=== PATIENT | female | born 1970 | race Caucasian/White ===

== ENCOUNTER 2016-08-14 18:14 | Observation (INO) | payer BC ==
[~2016-08-14] VITALS: Ht 172.7 cm; Wt 76.7 kg
[~2016-08-14 18:14] MED LIST: APRI
[2016-08-14] MEDS ORDERED: SODIUM CHLORIDE 0.9% 1000ML 1,000 ML IV STA ×2 (19:57)
[2016-08-14] MEDS ORDERED: KETOROLAC TROMETHAMINE 30 MG/ML VIAL IV STA (19:57)
[2016-08-14] MEDS ORDERED: ONDANSETRON INJ 2 MG/ML 2 ML VIAL IV STA (19:57)
[2016-08-14] MEDS ORDERED: MoRPHine SULFATE 10 MG/ML CARP/VIAL IV PRN (20:00)
--- NOTE | 2016-08-14 20:12 | EMERGENCY ROOM VISIT NOTE ---
History Report prepared by Cecy: Aaron Resendez Under the Supervision of: Dr. Rip Ferrera M.D. First contact with patient: 19:53 Chief Complaint: ABDOMINAL PAIN Stated Complaint: STOMACH PAIN Nursing Triage Summary: Pt c/o stomach pain and diarrhea this morning and now vomiting and stomach pain (mid abdominal) History of Present Illness The patient is a 46 year old female who presents to the Emergency Room with complaints of constant mid right abdominal pain beginning several hours prior to arrival. She describes the pain as dull and currently rates her discomfort as a 9-10/10 in severity. The patient associates nausea, decreased appetite, and three episodes of diarrhea with today's symptoms. She states she had two episodes of diarrhea this morning and one episode in the afternoon. The patient notes she had a kale and sausage soup with chicken brother for lunch yesterday and today. She states she took two Gas-X, TUMs, and a Pepcid six hours ago without relief. The patient notes she has had her gallbladder removed but still has her appendix. She denies a fever, vomiting, blood in stool, burning with urination, pain radiation, and a chance of . 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 Review of Systems See HPI for pertinent positives & negatives. A total of 10 systems reviewed and were otherwise negative. Past Medical & Surgical Surgical Problems: (1) S/P section (2) S/P cholecystectomy Family History FHx: gallbladder disease Social History Smoking Status: Never Smoker Marital Status: Current/Historical Medications Scheduled Control Pills ( Control Pills), 1 TAB PO QAM Allergies Coded Allergies: No Known Allergies (Unverified , 08/14/16) Physical Exam Vital Signs Date Time Temp Pulse Resp B/P Pulse Ox O2 Delivery O2 Flow Rate FiO2 08/14/16 20:29 66 18 102/57 97 Room Air 08/14/16 18:23 37.0 83 18 137/74 100 Room Air Physical Exam GENERAL: Patient is in no acute distress. HEENT: No acute trauma, normocephalic atraumatic, mucous membranes moist, no nasal congestion, no scleral icterus. NECK: No stridor, no adenopathy, no meningismus, trachea is midline. LUNGS: Clear to auscultation bilaterally, no wheeze, no rhonchi, breath sounds equal. HEART: Without murmurs gallops or rubs, regular rate and rhythm. ABDOMEN: Mildly diffusely tender but mostly tender in the right lower quadrant. Soft, bowel sounds positive, no hernias, no peritonitis. EXTREMITIES: No cyanosis or edema, full range of motion of all the joints without pain or difficulty, no signs for acute trauma. NEUROLOGIC: Oriented x 3, no acute motor or sensory deficits, no focal weakness. SKIN: No rash, no jaundice, no diaphoresis. Medical Decision & Procedures ER Provider Diagnostic Interpretation: CT results as stated below per my review and radiologist interpretation: CT OF THE ABDOMEN AND PELVIS WITH CONTRAST CLINICAL HISTORY: Abdominal pain. Possible appendicitis. COMPARISON STUDY: None. TECHNIQUE: Following IV administration of 120 mL of Optiray-320, axial images of the abdomen and pelvis were obtained from the lung bases to the proximal femurs. Images were reviewed in the axial, sagittal, and coronal planes. IV contrast was administered without complication. CT DOSE: 363.21 mGy.cm FINDINGS: Lung bases are clear. The liver, spleen, adrenal glands, kidneys and pancreas are normal. There is mild biliary ductal dilatation which may be related to prior cholecystectomy. There is no pneumatosis, free air or portal venous gas. There is a small amount of fluid within the pelvis. There is no evidence for a bowel obstruction. The appendix is mildly dilated, measuring 9 mm in caliber. Two appendicoliths are present. The appendix is largely fluid filled. There is no significant periappendiceal infiltration. There is no free air or abscess. Skeletal structures are unremarkable. IMPRESSION: 1. Findings suggestive of acute appendicitis. No free air or abscess. Mildly dilated, fluid-filled appendix which contains several appendicoliths. 2. Small amount of free fluid within the pelvis. Electronically signed by: Juan Damon M.D. 08/14/2016 9:37 PM Laboratory Results 08/14/16 20:15 Red Blood Count 4.78, Mean Corpuscular Volume 89.1, Mean Corpuscular Hemoglobin 31.4, Mean Corpuscular Hemoglobin Concent 35.2, Mean Platelet Volume 10.1, Neutrophils (%) (Auto) 88.9, Lymphocytes (%) (Auto) 7.5, Monocytes (%) (Auto) 3.2, Eosinophils (%) (Auto) 0.1, Basophils (%) (Auto) 0.1, Neutrophils # (Auto) 14.92, Lymphocytes # (Auto) 1.26, Monocytes # (Auto) 0.53, Eosinophils # (Auto) 0.01, Basophils # (Auto) 0.01 08/14/16 20:15 Test 08/14/16 20:04 08/14/16 20:15 Urine Color YELLOW Urine Appearance CLEAR (CLEAR) Urine pH 5.0 (4.5-7.5) Urine Specific [place] 1.015 (1.000-1.030) Urine Protein NEG (NEG) Urine Glucose (UA) NEG (NEG) Urine Ketones 2+ (NEG) Urine Occult Blood NEG (NEG) Urine Nitrite NEG (NEG) Urine Bilirubin NEG (NEG) Urine Urobilinogen NEG (NEG) Urine Leukocyte Esterase NEG (NEG) White Blood Count 16.76 K/uL (4.8-10.8) Red Blood Count 4.78 M/uL (4.2-5.4) Hemoglobin 15.0 g/dL (12.0-16.0) Hematocrit 42.6 % (37-47) Mean Corpuscular Volume 89.1 fL (80-100) Mean Corpuscular Hemoglobin 31.4 pg (25-34) Mean Corpuscular Hemoglobin Concent 35.2 g/dl (32-36) Platelet Count 207 K/uL (130-400) Mean Platelet Volume 10.1 fL (7.4-10.4) Neutrophils (%) (Auto) 88.9 % Lymphocytes (%) (Auto) 7.5 % Monocytes (%) (Auto) 3.2 % Eosinophils (%) (Auto) 0.1 % Basophils (%) (Auto) 0.1 % Neutrophils # (Auto) 14.92 K/uL (1.4-6.5) Lymphocytes # (Auto) 1.26 K/uL (1.2-3.4) Monocytes # (Auto) 0.53 K/uL (0.11-0.59) Eosinophils # (Auto) 0.01 K/uL (0-0.5) Basophils # (Auto) 0.01 K/uL (0-0.2) RDW Standard Deviation 42.4 fL (36.4-46.3) RDW Coefficient of Variation 13.0 % (11.5-14.5) Immature Granulocyte % (Auto) 0.2 % Immature Granulocyte # (Auto) 0.03 K/uL (0.00-0.02) Anion Gap 12.0 mmol/L (3-11) Est Creatinine Clear Calc Drug Dose 88.9 ml/min Estimated GFR () 92.6 Estimated GFR (Non- 79.9 BUN/Creatinine Ratio 14.1 (10-20) Calcium Level 9.1 mg/dl (8.5-10.1) Total Bilirubin 0.7 mg/dl (0.2-1) Aspartate Amino Transf (AST/SGOT) 16 U/L (15-37) Alanine Aminotransferase (ALT/SGPT) 21 U/L (12-78) Alkaline Phosphatase 51 U/L (45-117) Total Protein 8.1 gm/dl (6.4-8.2) Albumin 4.0 gm/dl (3.4-5.0) Globulin 4.1 gm/dl (2.5-4.0) Albumin/Globulin Ratio 1.0 (0.9-2) Lipase 117 U/L (73-393) Human Chorionic Gonadotropin, Qual NEG (NEG) Chemistry Specimen Hemolysis Laboratory results reviewed by me. Medications Administered Medications (Trade) Dose Ordered Sig/Juliocesar Route Start Time Stop Time Status Last Admin Dose Admin Ondansetron HCl 4 mg 4 mg NOW STAT IV 08/14/16 19:57 08/14/16 20:01 DC 08/14/16 20:16 4 MG Sodium Chloride 1,000 ml @ 200 mls/hr Q5H STAT IV 08/14/16 19:57 08/15/16 00:56 08/14/16 20:15 200 MLS/HR Sodium Chloride (Nss 1000ml) 1,000 ml @ 999 mls/hr Q1H1M STAT IV 08/14/16 19:57 08/14/16 20:57 DC 08/14/16 20:15 999 MLS/HR Morphine Sulfate (MoRPHine SULFATE INJ) 6 mg Q30M PRN IV 08/14/16 20:00 08/28/16 19:59 08/14/16 20:16 6 MG Ketorolac Tromethamine (Toradol Inj) 30 mg NOW STAT IV 08/14/16 19:57 08/14/16 20:01 DC 08/14/16 20:16 30 MG ED Course 1953: The patient was evaluated in room A12B. A complete history and physical exam was performed. 1956: Ordered Toradol Inj 30 mg IV, Sodium Chloride 1,000 ml @ 999 mls/hr IV, Sodium Chloride 1,000 ml @ 200 mls/hr IV, Zofran Inj 4 mg IV. 1999: Ordered Morphine Sulfate 6 mg IV. 2143: I spoke to SILVINA Buck (General Surgery) about the patient's case, and he will follow the patient for further evaluation. 2146: Reevaluated and updated the patient at this time. Medical Decision The differential diagnoses include but are not limited to: appendicitis, mesenteric adenitis, dehydration, electrolyte imbalance, pancreatitis, viral illness, UTI, ovarian cyst. There is a moderate leukocytosis at 16,000, this could be consistent with infection. No anemia. No significant electrolyte abnormality, kidney failure or hepatitis. There is no pancreatitis. Urinalysis shows some dehydration, no evidence for infection. testing is negative. On exam, there was no evidence for hernia. The patient was tender in the right lower quadrant and I was concerned for the possibility of appendicitis. An abdominal and pelvis CT was done, acute appendicitis without rupture was seen. The patient received IV saline, IV morphine, IV Toradol and IV Zofran. She feels improved. I talked to the patient, I talked with the skilled nursing case manager. The on-call surgeon has been consulted. The patient is likely going to require an appendectomy. Consults Time Called: 2143 Consulting Physician: SILVINA Buck (General Surgery) Returned Call: 2145 I spoke to SILVINA Buck (General Surgery) about the patient's case, and he will follow the patient for further evaluation. Impression Primary Impression: Acute appendicitis Scribe Attestation The scribe's documentation has been prepared under my direction and personally reviewed by me in its entirety. I confirm that the note above accurately reflects all work, treatment, procedures, and medical decision making performed by me. Departure Information Dispostion Being Evaluated By Surgeon (SILVINA Buck (General Surgery)) Referrals No Doctor, Assigned (PCP)
[2016-08-14] MEDS ORDERED: OPTIRAY 320 IV PRN (20:15)
[2016-08-14 20:19] LABS: URINE APPEARANCE CLEAR (CLEAR); URINE BILIRUBIN NEG (NEG); URINE COLOR YELLOW; URINE NITRITE NEG (NEG); URINE SPECIFIC GRAVITY 1.015 (1.000-1.030); UROBILINOGEN NEG (NEG); ZZUR CULT IF INDIC CLEAN CATCH NO
[2016-08-14 20:23] LABS: MANUAL MICROSCOPIC REQUIRED? NO; REVIEW REQ? NO
[2016-08-14 20:36] LABS: BASO % 0.1 %; BASO ABS # 0.01 K/uL (0-0.2); COMPLETE YES; EOS % 0.1 %; HEMATOCRIT 42.6 % (37-47); IG% 0.2 %; LYMPH % 7.5 %; LYMPH ABS # 1.26 K/uL (1.2-3.4); MEAN CELL VOLUME 89.1 fL (80-100); MEAN CORPUSCULAR HEMOGLOBIN 31.4 pg (25-34); MEAN CORPUSCULAR HGB CONC 35.2 g/dl (32-36); MEAN PLATELET VOLUME 10.1 fL (7.4-10.4); MONO % 3.2 %; NEUT % 88.9 %; PLATELET COUNT 207 K/uL (130-400); RED BLOOD COUNT 4.78 M/uL (4.2-5.4); WHITE BLOOD COUNT 16.76 K/uL (4.8-10.8)
[2016-08-14] MEDS ORDERED: BCPILLS PO (20:53)
[2016-08-14 21:01] LABS: PREG INTERNAL NEGATIVE QC NEG CLEAR BACKGROUND; PREG INTERNAL POSITIVE QC POS CONTROL LINE
[2016-08-14 21:12] LABS: BUN/CREATININE RATIO 14.1 (10-20); CALCIUM 9.1 mg/dl (8.5-10.1); CREATININE 0.88 mg/dl (0.60-1.20)
--- NOTE | 2016-08-14 21:38 | DIAGNOSTIC IMAGING REPORT ---
CT OF THE ABDOMEN AND PELVIS WITH CONTRAST CLINICAL HISTORY: Abdominal pain. Possible appendicitis. COMPARISON STUDY: None. TECHNIQUE: Following IV administration of 120 mL of Optiray-320, axial images of the abdomen and pelvis were obtained from the lung bases to the proximal femurs. Images were reviewed in the axial, sagittal, and coronal planes. IV contrast was administered without complication. CT DOSE: 363.21 mGy.cm FINDINGS: Lung bases are clear. The liver, spleen, adrenal glands, kidneys and pancreas are normal. There is mild biliary ductal dilatation which may be related to prior cholecystectomy. There is no pneumatosis, free air or portal venous gas. There is a small amount of fluid within the pelvis. There is no evidence for a bowel obstruction. The appendix is mildly dilated, measuring 9 mm in caliber. Two appendicoliths are present. The appendix is largely fluid filled. There is no significant periappendiceal infiltration. There is no free air or abscess. Skeletal structures are unremarkable. IMPRESSION: 1. Findings suggestive of acute appendicitis. No free air or abscess. Mildly dilated, fluid-filled appendix which contains several appendicoliths. 2. Small amount of free fluid within the pelvis. Electronically signed by: Juan Damon M.D. 08/14/2016 9:37 PM Dictated Date/Time: 08/14/2016 9:29 PM
[2016-08-14] MEDS ORDERED: CEFOXITIN SOD 2 GM VIAL IV STA (22:28)
[2016-08-14] MEDS ORDERED: CEFOXITIN SOD 2 GM VIAL ONE (22:33)
--- NOTE | 2016-08-14 22:38 | History and Physical ---
History & Physical Date & Time of Service: Aug 14, 2016 at 22:30 Chief Complaint: Stomach Pain Primary Care Physician: No Doctor, Assigned History of Present Illness Source: patient, spouse Oz Butterfield is a 46 year old female who presents to ER for 1 day history RLQ pain , pt has some nausea, but no vomiting, some diarrhea, pt denies fever. Past Medical/Surgical History Surgical Problems: (1) S/P section Status: Resolved (2) S/P cholecystectomy Status: Resolved Family History FHx: gallbladder disease Social History Smoking Status: Never Smoker Smokeless Tobacco Use: No Alcohol Use: occasionally Drug Use: none Marital Status: Allergies Coded Allergies: No Known Allergies (Unverified , 08/14/16) Home Medications Scheduled Control Pills ( Control Pills), 1 TAB PO QAM Review of Systems Constitutional: No chills, No fatigue, No fever, No problem reported, No sweats , No weakness, No weight loss Eyes: No diplopia, No discharge, No eye pain, No problem reported, No redness, No worsening of vision ENT: No dental problems, No hearing loss, No nasal symptoms, No problem reported, No sore throat, No tinnitus, No trouble swallowing, No unusual epistaxis Respiratory: No cough, No dyspnea at rest, No dyspnea on exertion, No hemoptysis, No problem reported, No shortness of breath, No sputum, No wheezing Cardiovascular: No PND, No chest pain, No claudication, No edema, No orthopnea , No palpitations, No problem reported Abdomen: + nausea (RLQ pain, rebound pain, BS +), + pain Genitourinary - Female: No dysmenorrhea, No dysuria, No hematuria, No menorrhagia, No metrorrhagia, No , No problem reported, No rash, No urinary frequency, No urinary incontinence, No urinary retention, No urinary urgency, No vaginal bleeding, No vaginal discharge, No vaginal itching, No vulvodynia Neurologic: No balance problems, No memory loss, No numbness/tingling, No paralysis, No problem reported, No vertigo, No weakness Psychiatric: No anhedonism, No anxiety, No depression symptoms, No insomnia, No problem reported, No substance abuse Endocrine: No excessive thirst, No excessive urination, No fatigue, No problem reported Hematologic / Lymphatic: No abnormal bleeding/bruising, No clotting problems, No night sweats, No problem reported, No swollen lymph nodes Physical Exam Vital Signs Date Time Temp Pulse Resp B/P Pulse Ox O2 Delivery O2 Flow Rate FiO2 08/14/16 22:26 118/61 08/14/16 20:29 66 18 102/57 97 Room Air 08/14/16 18:23 37.0 83 18 137/74 100 Room Air General Appearance: WD/WN Head: normocephalic Eyes: normal inspection, PERRL ENT: normal ENT inspection, hearing grossly normal Neck: supple, no adenopathy, no JVD Respiratory/Chest: chest non-tender, lungs clear, normal breath sounds Cardiovascular: regular rate, rhythm, no edema, no gallop, no JVD Abdomen/GI: normal bowel sounds, + tenderness, + guarding Extremities/Musculoskelatal: normal inspection, no calf tenderness, normal capillary refill Neurologic/Psych: applier II-XII nml as tested, no motor/sensory deficits Skin: normal color, warm/dry, no rash Diagnostics Laboratory Results Results Past 24 Hours Test 08/14/16 20:04 08/14/16 20:15 Range/Units Urine Color YELLOW Urine Appearance CLEAR CLEAR Urine pH 5.0 4.5-7.5 Urine Specific [place] 1.015 1.000-1.030 Urine Protein NEG NEG Urine Glucose (UA) NEG NEG Urine Ketones 2+ NEG Urine Occult Blood NEG NEG Urine Nitrite NEG NEG Urine Bilirubin NEG NEG Urine Urobilinogen NEG NEG Urine Leukocyte Esterase NEG NEG White Blood Count 16.76 4.8-10.8 K/uL Red Blood Count 4.78 4.2-5.4 M/uL Hemoglobin 15.0 12.0-16.0 g/dL Hematocrit 42.6 37-47 % Mean Corpuscular Volume 89.1 80-100 fL Mean Corpuscular Hemoglobin 31.4 25-34 pg Mean Corpuscular Hemoglobin Concent 35.2 32-36 g/dl Platelet Count 207 130-400 K/uL Mean Platelet Volume 10.1 7.4-10.4 fL Neutrophils (%) (Auto) 88.9 % Lymphocytes (%) (Auto) 7.5 % Monocytes (%) (Auto) 3.2 % Eosinophils (%) (Auto) 0.1 % Basophils (%) (Auto) 0.1 % Neutrophils # (Auto) 14.92 1.4-6.5 K/uL Lymphocytes # (Auto) 1.26 1.2-3.4 K/uL Monocytes # (Auto) 0.53 0.11-0.59 K/uL Eosinophils # (Auto) 0.01 0-0.5 K/uL Basophils # (Auto) 0.01 0-0.2 K/uL RDW Standard Deviation 42.4 36.4-46.3 fL RDW Coefficient of Variation 13.0 11.5-14.5 % Immature Granulocyte % (Auto) 0.2 % Immature Granulocyte # (Auto) 0.03 0.00-0.02 K/uL Sodium Level 140 136-145 mmol/L Potassium Level 4.0 3.5-5.1 mmol/L Chloride Level 105 98-107 mmol/L Carbon Dioxide Level 23 21-32 mmol/L Anion Gap 12.0 3-11 mmol/L Blood Urea Nitrogen 12 7-18 mg/dl Creatinine 0.88 0.60-1.20 mg/dl Est Creatinine Clear Calc Drug Dose 88.9 ml/min Estimated GFR () 92.6 Estimated GFR (Non- 79.9 BUN/Creatinine Ratio 14.1 10-20 Random Glucose 98 70-99 mg/dl Calcium Level 9.1 8.5-10.1 mg/dl Total Bilirubin 0.7 0.2-1 mg/dl Aspartate Amino Transf (AST/SGOT) 16 15-37 U/L Alanine Aminotransferase (ALT/SGPT) 21 12-78 U/L Alkaline Phosphatase 51 45-117 U/L Total Protein 8.1 6.4-8.2 gm/dl Albumin 4.0 3.4-5.0 gm/dl Globulin 4.1 2.5-4.0 gm/dl Albumin/Globulin Ratio 1.0 0.9-2 Lipase 117 73-393 U/L Human Chorionic Gonadotropin, Qual NEG NEG Chemistry Specimen Hemolysis Diagnostic Radiology CT scan-IMPRESSION: 1. Findings suggestive of acute appendicitis. No free air or abscess. Mildly dilated, fluid-filled appendix which contains several appendicoliths. 2. Small amount of free fluid within the pelvis. Impression Assessment and Plan IMP: acute appendicitis Plan: I recommend to do laparoscopic appendectomy, possible open, D/W benefits, risks and alternatives of the procedure, the risks- infection, bleeding, abscess , injury bowel, , pt and her understood, they agree with the plan, she signed consent, I answered all questions, cefoxitin 2gm iv x1 pre-op, ASA Classification: ASA Class II VTE Prophylaxis Risk Level: Low Given or contraindicated: SCD's
[2016-08-14] MEDS ORDERED: MEPERIDINE HCL 25 MG/ML CARP IV PRN (23:15)
[2016-08-14] MEDS ORDERED: NALOXONE HCL 0.4 MG/1 ML VIAL/CARP IV PRN (23:15)
[2016-08-14] MEDS ORDERED: FENTANYL CITRATE INJ 50 MCG/1 ML 2 ML VIAL IV PRN (23:15)
[2016-08-14] MEDS ORDERED: FLUMAZENIL 0.1 MG/1 ML 10 ML VIAL IV PRN (23:15)
[2016-08-14] MEDS ORDERED: PHENYLEPHRINE 100MCG/ML 5ML SYR IV PRN (23:15)
[2016-08-14] MEDS ORDERED: LABETALOL HCL IV 5 MG/ML 20ML IV PRN (23:15)
[2016-08-14] MEDS ORDERED: ONDANSETRON INJ 2 MG/ML 2 ML VIAL IV PRN (23:15)
[2016-08-14] MEDS ORDERED: HYDROmorphone INJ 2 MG/ML SYR/VIAL IV PRN (23:15)
[2016-08-14] MEDS ORDERED: ATROPINE SULFATE 0.1 MG/ML 5ML SYR IV PRN (23:15)
[2016-08-14] MEDS ORDERED: EpHEDrine SULFATE INJ 50 MG/ML AMP IV PRN (23:15)
[2016-08-14] MEDS ORDERED: FENTANYL CITRATE INJ 50 MCG/1 ML 2 ML VIAL ONE (23:29)
[2016-08-14] MEDS ORDERED: MIDAZOLAM HCL 1 MG/ML 2ML VIAL ONE (23:29)
[2016-08-14] MEDS ORDERED: GLYCOPYRROLATE INJ 0.2 MG/ML VIAL ONE (23:35)
[2016-08-14] MEDS ORDERED: ONDANSETRON INJ 2 MG/ML 2 ML VIAL ONE (23:35)
[2016-08-14] MEDS ORDERED: LIDOCAINE HCL 2% 2 ML VIAL (20MG/ML) ONE (23:35)
[2016-08-14] MEDS ORDERED: SUCCINYLCHOLINE 100MG/5ML SYR IV ONE (23:35)
[2016-08-14] MEDS ORDERED: ROCURONIUM BROMIDE 10 MG/ML 5 ML VIAL ONE (23:35)
[2016-08-14] MEDS ORDERED: DEXAMETHASONE SOD INJ 4 MG/ML VIAL ONE (23:35)
[2016-08-14] MEDS ORDERED: PROPOFOL IV EMULSION 10 MG/ML 20 ML VIAL IV ONE (23:35)
[2016-08-14] MEDS ORDERED: NEOSTIGMINE METHYLSULFATE 5 MG/5 ML SYR ONE (23:36)
[2016-08-14] MEDS ORDERED: LIDOCAINE HCL 1% 20 ML VIAL ONE (23:46)
[2016-08-14] MEDS ORDERED: BUPIVACAINE 0.5 % 5 MG/1 ML MPF 30ML VIAL ONE (23:46)
[2016-08-14] MEDS ORDERED: BACITRACIN OINT 15 GM TUBE ONE (23:48)
[2016-08-15] VITALS (7 sets, daily range): BP systolic 98–106; BP diastolic 59–69; PULSE 66–77; TEMP 36.4–36.8; O2SAT 96–98; Ht 172.7 cm; Wt 76.7 kg
[2016-08-15] MEDS ORDERED: KETOROLAC TROMETHAMINE 30 MG/ML VIAL ONE (00:35)
[2016-08-15] MEDS ORDERED: FENTANYL CITRATE INJ 50 MCG/1 ML 2 ML VIAL ONE (00:43)
--- NOTE | 2016-08-15 00:58 | [facility] Post Operative Brief Note ---
Immediate Operative Summary Operative Date Aug 15, 2016. Pre-Operative Diagnosis Acute appendicitis Post-Operative Diagnosis Acute appendicitis Procedure(s) Performed Laparoscopic appendectomy Surgeon Dr. 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 Appendix Drains none Anesthesia general Complication(s) None Disposition Recovery Room / PACU
[2016-08-15] MEDS ORDERED: OXYCODONE/ACETAMINOPHEN 5-325 TAB PO PRN ×2 (01:00→01:15)
[2016-08-15] MEDS ORDERED: HYDROmorphone INJ 1 MG/ML SYR IV PRN (01:00)
[2016-08-15] MEDS ORDERED: ACETAMINOPHEN 325 MG TAB PO PRN (01:00)
[2016-08-15] MEDS ORDERED: ONDANSETRON INJ 2 MG/ML 2 ML VIAL IV PRN (01:00)
--- NOTE | 2016-08-15 01:23 | Anesthesiology Progress Note ---
Anesthesia Post Op Note Date & Time Aug 15, 2016 at 01:22 Vital Signs Pain Intensity: 0 Vital Signs Past 12 Hours Date Time Temp Pulse Resp B/P Pulse Ox O2 Delivery O2 Flow Rate FiO2 08/15/16 01:10 36.7 67 16 113/66 98 Nasal Cannula 2 08/15/16 01:00 36.5 67 16 124/72 100 Mask 6 08/14/16 23:34 20 98 08/14/16 22:26 118/61 08/14/16 20:29 66 18 102/57 97 Room Air 08/14/16 18:23 37.0 83 18 137/74 100 Room Air Notes Mental Status: alert / awake / arousable, participated in evaluation Pt Amnestic to Procedure: Yes Nausea / Vomiting: adequately controlled Pain: adequately controlled Airway Patency, RR, SpO2: stable & adequate BP & HR: stable & adequate Hydration State: stable & adequate Anesthetic Complications: no major complications apparent
[2016-08-15] MEDS ORDERED: IV FLUIDS COMPLETED PRN (01:30)
[2016-08-15] MEDS ORDERED: D5W AND 1/2NSS + 20MEQ KCL 1,000 ML IV SCH (03:00)
[2016-08-15] MEDS ORDERED: CEFOXITIN IV 1,000 MG in DEXTROSE 5% 50ML 50 ML IV SCH (06:00)
[2016-08-15 06:41] LABS: HEMATOCRIT 38.8 % (37-47); MEAN CELL VOLUME 87.2 fL (80-100); MEAN CORPUSCULAR HEMOGLOBIN 30.3 pg (25-34); MEAN CORPUSCULAR HGB CONC 34.8 g/dl (32-36); MEAN PLATELET VOLUME 9.8 fL (7.4-10.4); PLATELET COUNT 185 K/uL (130-400); RED BLOOD COUNT 4.45 M/uL (4.2-5.4); WHITE BLOOD COUNT 16.57 K/uL (4.8-10.8)
[2016-08-15 07:03] LABS: COMPLETE YES; IG% 0.4 %; LYMPH % 3.9 %; LYMPH ABS # 0.65 K/uL (1.2-3.4); NEUT % 94.7 %
--- NOTE | 2016-08-15 09:06 | OPERATIVE REPORT ---
DATE OF OPERATION: 08/15/2016 PREOPERATIVE DIAGNOSIS: Acute appendicitis. POSTOPERATIVE DIAGNOSIS: Same. PROCEDURE: Laparoscopic appendectomy. SURGEON: Dr. Lesly Zarate. ANESTHESIA: General. ESTIMATED BLOOD LOSS: About 5 mL. IV FLUIDS: 1 liter. FINDINGS: Acute appendicitis. COMPLICATIONS: None. INDICATIONS FOR THE PROCEDURE: This is a 46-year-old female who presented to the ED with 1 day history of abdominal pain. The patient had CT scan shows acute appendicitis. We decided to take the patient to the OR do laparoscopic appendectomy, possible open. I did talk to the patient about the benefit and risk, alternate procedure. I indicated the risks may include but not limited such as bleeding, infection, abscess, injury to bowel, even . The patient understands. She signed informed consent and I answered all questions. OPERATION AND FINDINGS: DETAILS OF PROCEDURE: We brought the patient to the OR, put the patient in the supine position. The patient received SCDs on bilateral legs to prevent DVT. Also, the patient received 2 gram cefoxitin IV for prophylactic antibiotic. The patient received general anesthesia without difficulty. The abdomen was prepped and draped in routine sterile fashion. After a timeout, I injected the local anesthesia by using 1% lidocaine mixed with 0.25% Marcaine around the umbilical area. Then I made a small incision just above umbilical opened fascia, opened peritoneum under direct vision. I put a Cheryl trocar in connected to CO2 to create pneumoperitoneum. Flow rate is 6 liter per minute. Pressure not more than 14 mmHg. Once we get a nice pneumoperitoneum then we put another two 5 mm trocar just below the umbilical incision about 3 cm apart. Once all trocars were in and we put the camera in looked around the abdomen and showed no more findings on the stomach, small bowel, large bowel, liver; however, the patient had acute appendicitis. Appendix was swollen, enlarged, redness, inflammation and then we put another grasper in to hold the appendiceal. We made a window at the base of the appendix between the appendiceal then I passed a 45 mm Endo-MICHAEL stable transection of the base of the appendix, rechecked no active bleeding, no leak, then I used a harmonic take down the appendiceal, rechecked no active bleeding. Then I removed the appendix through the catch bag then I reinserted Cheryl trocar in creating pneumoperitoneum. Again rechecked inside the abdomen no other injury, no leak and no active bleeding. Then we removed all trocars under direct vision. No active bleeding from trocar sites. Then I removed all trocar. After removal trocar the pneumoperitoneum was released. Then I closed the umbilical incision fascial layer by using #1 Vicryl [id number] x2, closed subcutaneous layer by using 2-0 Vicryl, closed skin by using 4-0 Vicryl. Then, we put a dressing on. The patient tolerated the procedure well. All the instrument, needle and sponge count correct x2 at the end of case. The specimen sent to pathology and the patient was extubated in the OR, transported to the recovery room in stable condition. After the procedure, I did call the patient's about the OR finding procedure we did, he understands. I attest to the content of the Intraoperative Record and any orders documented therein. Any exceptions are noted below. SATISH
[2016-08-15] MEDS ORDERED: OXYC-57 PO (09:54)
--- NOTE | 2016-08-15 10:02 | Discharge Instructions ---
Discharge Instructions Admission Reason for Admission: Acute Appendicitis (Betsy Alex PA-C) s/p LAPAROSCOPIC APPENDECTOMY (Lesly Zarate MD) Discharge Discharge Diagnosis / Problem: S/p laparoscopic Appendectomy (Betsy Alex PA-C) Discharge Goals Goal(s): Decrease discomfort, Improve function (Betsy Alex PA-C) Activity Recommendations Activity Limitations: per Instructions/Follow-up section Exercise/Sports Limitations: rest today No heavy lifting over 20 pounds for 4 weeks You may do light activity and walking is encouraged to prevent blood clots You may drive if you are no longer taking any narcotic pain medication or you are pain free. . (Betsy Alex PA-C) Activity Limitations: per Instructions/Follow-up section Lifting Limitations: no more than 25 pounds Exercise/Sports Limitations: gradually increase as tolerated May Resume Sexual Activity: when tolerated Shower/Bathe: may shower/bathe in 3 days (Lesly Zarate MD) Instructions / Follow-Up Instructions / Follow-Up Keep dressing on for 4 days and then remove. You may then shower. Sponge bath in the meantime Will give you Narcotic pain medication to take as needed for pain. If you do not want to take the narcotic you can take extra strength Tylenol or Ibuprofen as needed for pain. Follow-up in Surgical office in [address] Zarate Please call office at [phone] to make a follow-up appointment. (Betsy lAex PA-C) Instructions / Follow-Up keep all dressing on for 4 days, she can take a shower on 08/19/2016. no driving while taking pain medicine. Follow up in 1 week, (Lesly Zarate MD) Current Hospital Diet Patient's current hospital diet: Clear Liquid Diet (Betsy Alex PA-C) Discharge Diet Recommended Diet: Regular Diet (Betsy Alex PA-C) Recommended Diet: Regular Diet (Lesly Zarate MD) Procedures Procedures Performed: Laparoscopic appendectomy (Btesy Alex PA-C) Pending Studies Studies pending at discharge: no (Betsy Alex PA-C) Studies pending at discharge: no (Lesly Zarate MD) Medical Emergencies . Who to Call and When: Medical Emergencies: If at any time you feel your situation is an emergency, please call 911 immediately. . (Betsy Alex PA-C) Non-Emergent Contact Non-Emergency issues call your: Primary Care Provider, Surgeon Contact Number: Surgeons office [phone] Call Non-Emergent contact if: you have a fever, temperature is above 101.5, your pain is not controlled, your pain is worsening, wound has increased drainage, wound has increased redness, wound has increased pain (Betsy Alex PA-C) Non-Emergency issues call your: Primary Care Provider Call Non-Emergent contact if: you have a fever, temperature is above 100.5, your pain is not controlled, your pain is worsening, wound has increased drainage, wound has increased redness (Lesly Zarate MD) . "Provider Documentation" section prepared by Betsy Alex. (Betsy Alex PA-C) VTE Core Measure Inpt VTE Proph given/why not?: SCD's (Betsy Alex PA-C) Inpt VTE Proph given/why not?: SCD's (Lesly Zarate MD) [place] Drug Monitoring Program Search Results: patient reviewed within database, no issues identified (Betsy Alex PA-C)
--- NOTE | 2016-08-15 10:04 | Surgery Progress Note ---
Surgery Progress Note Date of Service Aug 15, 2016. Subjective Post OP Day: 1 + feeling well F/U S/P laparoscopic appendectomy POD 1 pt is doing fine, she feels better, only incision pain, pt denies N/V, no fever , passed gas. Objective Vital Signs: Date Time Temp Pulse Resp B/P Pulse Ox O2 Delivery O2 Flow Rate FiO2 08/15/16 07:45 Room Air 08/15/16 07:41 36.8 66 16 98/59 96 Room Air 08/15/16 04:32 36.4 77 18 101/67 97 Nasal Cannula 2.0 08/15/16 03:58 36.6 67 18 99/63 97 Nasal Cannula 2.0 08/15/16 02:36 36.8 67 18 101/65 98 Nasal Cannula 2.0 08/15/16 02:10 98 Nasal Cannula 2.0 08/15/16 02:00 Nasal Cannula 2.0 08/15/16 01:59 36.5 67 18 106/69 98 Nasal Cannula 2.0 08/15/16 01:40 36.7 65 16 110/57 97 Nasal Cannula 2 08/15/16 01:30 36.5 64 16 107/61 97 Nasal Cannula 2 08/15/16 01:20 36.7 65 16 110/59 97 Nasal Cannula 2 08/15/16 01:10 36.7 67 16 113/66 98 Nasal Cannula 2 08/15/16 01:00 36.5 67 16 124/72 100 Mask 6 08/14/16 23:34 20 98 08/14/16 22:26 118/61 08/14/16 20:29 66 18 102/57 97 Room Air 08/14/16 18:23 37.0 83 18 137/74 100 Room Air General Appearance: WD/WN Head: normocephalic Neck: supple Respiratory/Chest: chest non-tender, lungs clear Cardiovascular: regular rate, rhythm, no edema, no gallop, no JVD Abdomen: normal bowel sounds, non distended, soft, + tenderness (only tenderness at incision site, no rebound pain, ) Incision(s): clean, dry, intact Extremities: normal range of motion, non-tender, normal inspection Laboratory Results: Results Past 24 Hours Test 08/14/16 20:04 08/14/16 20:15 2/15/17 05:55 Range/Units Urine Color YELLOW Urine Appearance CLEAR CLEAR Urine pH 5.0 4.5-7.5 Urine Specific [place] 1.015 1.000-1.030 Urine Protein NEG NEG Urine Glucose (UA) NEG NEG Urine Ketones 2+ NEG Urine Occult Blood NEG NEG Urine Nitrite NEG NEG Urine Bilirubin NEG NEG Urine Urobilinogen NEG NEG Urine Leukocyte Esterase NEG NEG White Blood Count 16.76 16.57 4.8-10.8 K/uL Red Blood Count 4.78 4.45 4.2-5.4 M/uL Hemoglobin 15.0 13.5 12.0-16.0 g/dL Hematocrit 42.6 38.8 37-47 % Mean Corpuscular Volume 89.1 87.2 80-100 fL Mean Corpuscular Hemoglobin 31.4 30.3 25-34 pg Mean Corpuscular Hemoglobin Concent 35.2 34.8 32-36 g/dl Platelet Count 207 185 130-400 K/uL Mean Platelet Volume 10.1 9.8 7.4-10.4 fL Neutrophils (%) (Auto) 88.9 94.7 % Lymphocytes (%) (Auto) 7.5 3.9 % Monocytes (%) (Auto) 3.2 1.0 % Eosinophils (%) (Auto) 0.1 0.0 % Basophils (%) (Auto) 0.1 0.0 % Neutrophils # (Auto) 14.92 15.70 1.4-6.5 K/uL Lymphocytes # (Auto) 1.26 0.65 1.2-3.4 K/uL Monocytes # (Auto) 0.53 0.16 0.11-0.59 K/uL Eosinophils # (Auto) 0.01 0.00 0-0.5 K/uL Basophils # (Auto) 0.01 0.00 0-0.2 K/uL RDW Standard Deviation 42.4 42.0 36.4-46.3 fL RDW Coefficient of Variation 13.0 13.0 11.5-14.5 % Immature Granulocyte % (Auto) 0.2 0.4 % Immature Granulocyte # (Auto) 0.03 0.06 0.00-0.02 K/uL Sodium Level 140 136-145 mmol/L Potassium Level 4.0 3.5-5.1 mmol/L Chloride Level 105 98-107 mmol/L Carbon Dioxide Level 23 21-32 mmol/L Anion Gap 12.0 3-11 mmol/L Blood Urea Nitrogen 12 7-18 mg/dl Creatinine 0.88 0.60-1.20 mg/dl Est Creatinine Clear Calc Drug Dose 88.9 ml/min Estimated GFR () 92.6 Estimated GFR (Non- 79.9 BUN/Creatinine Ratio 14.1 10-20 Random Glucose 98 70-99 mg/dl Calcium Level 9.1 8.5-10.1 mg/dl Total Bilirubin 0.7 0.2-1 mg/dl Aspartate Amino Transf (AST/SGOT) 16 15-37 U/L Alanine Aminotransferase (ALT/SGPT) 21 12-78 U/L Alkaline Phosphatase 51 45-117 U/L Total Protein 8.1 6.4-8.2 gm/dl Albumin 4.0 3.4-5.0 gm/dl Globulin 4.1 2.5-4.0 gm/dl Albumin/Globulin Ratio 1.0 0.9-2 Lipase 117 73-393 U/L Human Chorionic Gonadotropin, Qual NEG NEG Chemistry Specimen Hemolysis Assessment & Plan IMP S.P laparoscopic appendectomy pt is doing fine, pt wants to go home today, I gave pt post-op care instruction, F/U 1 week,
--- NOTE | 2016-08-15 12:51 | DISCHARGE SUMMARY ---
ADMITTING DIAGNOSIS: Acute appendicitis. DISCHARGE DIAGNOSIS: Same. OPERATION: Laparoscopy appendectomy. SURGEON: Dr. Lesly Zarate. DETAIL OF DISCHARGE SUMMARY: This is 46-year-old female who presented to the ED with a 1 day history of abdominal pain. The patient had a CT scan showing acute appendicitis. We took the patient to the OR. We did a laparoscopy appendectomy. In the OR, we found the patient to have acute appendicitis and patient tolerated the procedure well. After the procedure, the patient transferred to the recovery room and later on transferred to the surgical floor. The patient doing fine. The patient only has incision pain. No nausea, no vomiting. Passed the gas. PHYSICAL EXAMINATION: VITAL SIGNS: Temperature is 36.8, heart rate is 66, respiratory rate is 16, blood pressure is 90/59, O2 saturation 96% on room air. The patient is alert, awake, oriented x3. NEUROLOGIC: Intact. NECK: No JVD. CHEST: Bilateral lungs sound clear. HEART: Normal S1, S2. No murmur. ABDOMEN: Soft. Only incision pain. Not distended. Bowel sounds positive. All incisions dry. No drainage. EXTREMITIES: No edema. PLAN: The patient wants to go home. I gave patient the postop care instructions and patient understands. We will follow the patient in 1 week. Also instructed the patient the patient should come back to the hospital ER if patient develops severe abdominal pain, nausea, vomiting, diarrhea or fever. The patient understands. [place]
== END 2016-08-15 10:50 | disposition home or self-care (01) ==
LOC: C.EDB 18:16 → C.3E 08-15 01:06
PROVIDERS: ADMIT Surgery; ATTEND Surgery
DX: K35.80 Unspecified acute appendicitis (principal); Z90.49 Acquired absence of other specified parts of digestive tract; Z79.3 Long term (current) use of hormonal contraceptives